=== PATIENT | female | born 1970 | race Hispanic/Latino ===

== ENCOUNTER 2025-06-19 05:20 | Day surgery (SDC) | payer OTHER ==
--- NOTE | 2025-06-18 08:30 | NUR ---
CALLED AND NOTIFIED PT OF ARRIVAL TIME FOR CASE IN AM.
[~2025-06-19] VITALS: Ht 152.4 cm; Wt 84.0 kg
[~2025-06-19 05:20] MED LIST: LACTATED RINGER'S 1,000 ML IV SCH
[2025-06-19 06:06] VITALS: BP 118/69
[2025-06-19] MEDS ORDERED: MIDAZOLAM HCL 2 MG/2 ML VIAL ONE (06:25)
[2025-06-19] MEDS ORDERED: Ropivacaine HCl 0.5% 30 ML VIAL ONE (06:26)
[2025-06-19] MEDS ORDERED: DEXAMETHASONE SOD PHOS 4 MG/ML VIAL ONE ×2 (06:26→07:06)
[2025-06-19] MEDS ORDERED: LIDOCAINE HCL 2% 5 ML SDV ONE (06:26)
[2025-06-19] MEDS ORDERED: SODIUM CHLORIDE 0.9% 40 ML IV ONE (06:26)
[2025-06-19] MEDS ORDERED: fentaNYL citrate 100 MCG/2 ML VIAL ONE (06:26)
[2025-06-19 06:28] LABS: BASOPHILS 0.5 % (0.1-1.2); BASOPHILS, ABSOLUTE 0.04 K/uL (0.01-0.08); EOSINOPHILS 2.3 % (0.7-5.8); EOSINOPHILS, ABSOLUTE 0.17 K/uL (0.04-0.36); LYMPHOCYTES 29.0 % (19.3-51.7); MCH 32.3 PG (25.6-32.2); MCHC 33.3 g/dL (32.2-35.5); MCV 96.8 fL (79.4-94.8); MONOCYTES 7.7 % (4.7-12.5); MONOCYTES, ABSOLUTE 0.56 K/uL (0.24-0.86); NEUTROPHILS 60.2 % (34.0-71.1); NEUTROPHILS, ABSOLUTE 4.39 K/uL (1.56-6.13); RBC 4.09 M/uL (3.93-5.22)
[2025-06-19 06:46] LABS: ALT (SGPT) 42.0 U/L (14-59); AST (SGOT) 21.0 U/L (15-37); GLOMERULAR FILTRATION RATE,EST 103.0 mL/min (>60); PROTEIN, TOTAL 7.3 g/dL (6.4-8.2); UREA NITROGEN 12.0 mg/dL (7-18)
[2025-06-19] MEDS ORDERED: CEFAZOLIN SODIUM 2 GM in SODIUM CHLORIDE 0.9% 100 ML IV SCH ×2 (07:00→15:00)
[2025-06-19] MEDS ORDERED: GABAPENTIN 600 MG TAB PO SCH ×2 (07:00)
[2025-06-19] MEDS ORDERED: DULOXETINE HCL 60 MG CAP PO SCH (07:00)
[2025-06-19] MEDS ORDERED: PANTOPRAZOLE SODIUM 40 MG TABEC PO SCH (07:00)
[2025-06-19] MEDS ORDERED: IBLOOD GLUCOSE TEST STRIP 1 EA TEST VI PRN (07:00)
[2025-06-19] MEDS ORDERED: INTRA-ARTICULAR ANALGESIC INJECTION XX SCH (07:00)
[2025-06-19] MEDS ORDERED: OXYCODONE HCL 5 MG TAB PO SCH (07:00)
[2025-06-19] MEDS ORDERED: ROPIVACAINE IN 0.9% SOD CHL/PF 545 ML ELS.PMP.HR IRRIGATION SCH (07:00)
[2025-06-19] MEDS ORDERED: TRANEXAMIC ACID IN NACL,ISO-OS 1,000 MG/100 ML PIGGYBACK IV SCH ×2 (07:00→10:01)
[2025-06-19] MEDS ORDERED: LIDOCAINE HCL 1% 5 ML SDV INJ ONE (07:00)
[2025-06-19] MEDS ORDERED: KETOROLAC TROMETHAMINE 30 MG/ML VIAL IV PRN (07:15)
[2025-06-19] MEDS ORDERED: OXYCODONE HCL 5 MG TAB PO PRN (07:15)
[2025-06-19] MEDS ORDERED: PHENYLEPHRINE HCL IN 0.9% NACL 1 MG/10 ML SYR ONE (07:44)
[2025-06-19] MEDS ORDERED: ASPIRIN325 MG PO (08:27)
[2025-06-19] MEDS ORDERED: SENNA LAX8.6 MG PO (08:27)
[2025-06-19] MEDS ORDERED: OXYCODONE HCL5 M1 PO (08:27)
[2025-06-19] MEDS ORDERED: GABAPENTIN300 MG PO (08:27)
[2025-06-19] MEDS ORDERED: DICLOFENAC SODI75 MG PO (08:28)
[2025-06-19] MEDS ORDERED: ASPIRIN 325 MG TAB PO SCH (09:00)
--- NOTE | 2025-06-19 09:03 | NUR ---
06/19/25 0903 Sunni Starks 0834: PT ARRIVED TO PACU VIA STRETCHER. PT DROWSY BUT EASILY ARROUSABLE. PT HAS NO COMPLAINTS OF PAIN OR NAUSEA AT THIS TIME. 0840: PT STILL HAS NO COMPLAINTS OF PAIN OR NAUSEA AT THIS TIME. DRESSING TO RIGHT KNEE C/D/I. GOOD CAP REFIL. 0845: PT REMAINS ON ROOM AIR BUT NEEDS QUEING TO TAKE DEEP BREATHS. 0850: X-RAY TECH IN ROOM WITH PATIENT. 0858: PT PLACED ON 2L NC AT THIS TIME.
[2025-06-19 09:15] VITALS: BP 128/63
--- NOTE | 2025-06-19 09:28 | NUR ---
0915-PT BACK TO ROOM FROM PACU ON 2L VIA PR. RECEIVED REPORT FROM ROMAIN ENGEL. PT IS DROWSY. RESP EVEN AND UNLABORED. DENIES PAIN AND NAUSEA. CRYO CUFF IN PLACE AND RUNNING. ON-Q PUMP SET A 4. PT TAKING SIPS OF WATER. NO OTHER NEEDS AT THIS TIME. FAMILY AT BEDSIDE. CALL LIGHT WITHIN REACH.
[2025-06-19 10:32] VITALS: BP 136/66
[2025-06-19 11:30] VITALS: BP 118/60
--- NOTE | 2025-06-19 11:42 | OR ---
[facility] [address], [place] [address] Signed DATE OF OPERATION: 06/19/2025 SURGEON: Mica Blas MD PREOPERATIVE DIAGNOSIS: Severe degenerative joint disease, right knee. POSTOPERATIVE DIAGNOSIS: Severe degenerative joint disease, right knee. PROCEDURE PERFORMED: Right total knee arthroplasty. DIRECTOR OF FLIGHT OPERATIONS: Alba Silveira PA-C. Alba was present and critical for all portions of procedure. ANESTHESIA: Spinal. BLOOD LOSS: 155 mL. IMPLANTS: Osmany Triathlon size 3, 10 mm polyethylene, and 32 mm patella. BRIEF HISTORY: Genesis is a 55-year-old female with progressive worsening knee arthritis who is nonresponsive to injections, bracing, and anti-inflammatories. Risks and benefits of operative treatment were discussed with her and she elected to proceed. DESCRIPTION OF PROCEDURE: Once consent was obtained, she was taken to the operating room. After adequate anesthesia, she was placed on the OR table with a hip bump. The leg was prepped and draped in a standard sterile fashion. The knee was approached through a standard anterior midline incision, carried through skin and subcutaneous tissue. A low mid vastus arthrotomy was performed. The infrapatellar fat pad was excised. The MCL was elevated subperiosteally around to the level of the posteromedial corner. The anterior horns of menisci were transected. The ACL was transected. PCL was found to be intact. The navigation computer arrays were then placed in the distal femur and proximal tibia. Electronically Signed By: MICA BLAS MD 06/19/25 1142 PATIENT NAME: GENESIS VALDIVIA OPERATIVE REPORT DATE OF : 66 REPORT #: [id number] PHYSICIAN: MICA BLAS MD PCP: MICA BLAS MD REPORT IS CONFIDENTIAL AND NOT TO BE RELEASED WITHOUT AUTHORIZATION [facility] [address], [place] [address] Signed The leg was then registered with computer, followed by the fine anatomic points of the knee. Varus valgus poses were undertaken and slight adjustments were made to the position of the prosthesis to balance the knee. The robot was then brought in. Four straight cuts and two angle cuts were made with care taken to protect the patellar tendon and MCL. The bony remnants were removed. Posterior osteophytes were removed off the femur. Posterior release was performed. The trials were then positioned. The knee was taken from 0-120 degrees of flexion with good stability throughout. The patella was cut, sized, and drilled for a 32 mm patella. The distal femur was then finished using the drill for the drill holes. The proximal tibia was finished using the keel punch followed by the drill holes. The prosthesis was then obtained, tibia was impacted in position first followed by the polyethylene. The femur was then impacted into position and the knee was extended and loaded. The patella was clamped and the patellar tracking was checked, found to be centered. The knee was then washed out with one bottle Surgiphor, followed by normal saline. The periarticular soft tissues were injected with 100 mL of ropivacaine Toradol mixture. The On-Q pain pump was percutaneously introduced into the adductor canal from the suprapatellar pouch. The arthrotomy was then closed using #2 FiberWire, #2 Stratafix, subcutaneous tissue with 0 Stratafix and skin with 3-0 Stratafix. The wound was sealed with LiquiBand, Steri-Strips, and dressed with an Acticoat-7 dressing, ABDs, and Ryan wrap. She tolerated the procedure well. All sponge, needle, and instrument counts were correct. Mica Blas MD BA/MODL /[id number] Copies: ~ Electronically Signed By: MICA BLAS MD 06/19/25 1142 PATIENT NAME: GENESIS VALDIVIA OPERATIVE REPORT DATE OF : 66 REPORT #: [id number] PHYSICIAN: MICA BLAS MD PCP: MICA BLAS MD REPORT IS CONFIDENTIAL AND NOT TO BE RELEASED WITHOUT AUTHORIZATION
[2025-06-19 12:38] VITALS: BP 117/65
[2025-06-19 14:49] VITALS: BP 101/55
[2025-06-19] MEDS ORDERED: GABAPENTIN 300 MG CAP PO SCH (15:00)
--- NOTE | 2025-06-19 15:49 | NUR ---
LE 1032-PT IS AWAKE. RESP EVEN AND UNLABORED. PT DENIES PAIN AND NAUSEA. CYRO CUFF IN PLACE AND RUNNING. ON-Q PUMP SET AT 4. PT TAKING SIPS OF WATER. LE 1040-PT UP TO BEDSIDE COMMODE. PT VOIDS 525 OF YELLOW URINE. LE 1047- PT BACK TO BED. PT STATES PAIN IS A 7/10 AND WOULD LIKE PAIN MEDICATION. PT EATIING JELLO. LE 1050-PAIN MEDICATION GIVEN PER EMAR.
--- NOTE | 2025-06-19 16:25 | NUR ---
LE 1131-PT IS LAYING IN BED WITH EYES CLOSED. PT AWAKES EASILY WITH TACTILE STIMULI AND ANSWERS QUESTIONS. PT RATES PAIN 3/10. CRYO CUFF IN PLACE AND RUNNING. ON-Q PUMPS SET AT 4. FAMILY AT BEDSIDE. NO OTHER NEEDS AT THIS TIME. CALL LIGHT WITHIN REACH.
--- NOTE | 2025-06-19 16:33 | NUR ---
1238-PT LAYING IN BED WITH EYES CLOSED. PT AWAKES EASILY WITH VERBAL STIMULI. RESP EVEN AND UNLABORED. PT DENIES PAIN. CRYO CUFF IN PLACE AND RUNNING. ON-Q PUMP SET AT 4. PHYSICAL THERAPY HERE TO WORK WITH PT.
--- NOTE | 2025-06-19 16:35 | NUR ---
LE 1340-PT BACK TO ROOM FROM PHYSICAL THERAPY. LE 1348-LUNCH ORDERED. LE 1400-PT EATING LUNCH. LE 1430-PT UP TO BEDSIDE COMMODE. PT ABLE TO VOID. LE 1435-PT BACK TO BED. CALL LIGHT WITHIN REACH.
--- NOTE | 2025-06-19 16:40 | NUR ---
MJ 1449-WENT OVER DISCHARGE INSTRUCTION WITH PT AND FAMILY. WENT OVER POST OP MEDICATIONS. ALL QUESTIONS ANSWERED. PT WILL GET DRESSED WITH FAMILY IN ROOM. CALL LIGHT WITHIN REACH.
--- NOTE | 2025-06-19 17:10 | NUR ---
LE 1510-PT AMBUALTES WITH WALKER TO WHEELCHAIR. PT DENIE PAIN. ICE PACK GIVEN TO PT TO USE FOR THE RIDE HOME. LE 1514-RIDE PROVIDED TO FRONT OF HOSPITAL WHERE FAMILY WAS WAITING WITH THE CAR.
[2025-06-19] MEDS ORDERED: SENNOSIDES 1 TAB PO SCH (21:00)
== END 2025-06-19 15:14 | disposition home or self-care (01) ==
LOC: DS 05:20
PROVIDERS: Nurse Anesthetist, Certified Registered; ATTEND Specialist
PROC: 3E0T3BZ Introduction of Anesthetic Agent into Peripheral Nerves and Plexi, Percutaneous Approach (ICD-10-PCS; 2025-06-19)
PROC: 3E0T3BZ Introduction of Anesthetic Agent into Peripheral Nerves and Plexi, Percutaneous Approach (ICD-10-PCS; 2025-06-19)
PROC: 3E0T3BZ Introduction of Anesthetic Agent into Peripheral Nerves and Plexi, Percutaneous Approach (ICD-10-PCS; 2025-06-19)
PROC: 0SRC0JZ Replacement of Right Knee Joint with Synthetic Substitute, Open Approach (ICD-10-PCS; principal; 2025-06-19 07:00)
DX: M17.11 Unilateral primary osteoarthritis, right knee (principal); I10 Essential (primary) hypertension; E78.5 Hyperlipidemia, unspecified
CPT/HCPCS: 0055T; 27447; 64447; 64454; 64473; 01402; 36415; 64448; 73560; 80053; 85025; 97110; 97161; 97530; A9270; C1776; J0165; J0688; J1100; J2003; J2250; J2704; J2795; J3010; J7121; J7999